=== PATIENT | female | born 1965 | race Hispanic/Latino ===

== ENCOUNTER 2024-08-21 14:34 | Emergency (ER) | payer SELFPAY ==
[~2024-08-21] VITALS: Ht 154.9 cm; Wt 103.9 kg
[2024-08-21 14:45] VITALS: BP 126/58; PULSE 72; RESP 16; TEMP 98.9
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
--- NOTE | 2024-08-21 15:04 | EKG ---
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
--- NOTE | 2024-08-21 15:07 | NUR ---
REFER TO TRAUMA FLOW SHEET
--- NOTE | 2024-08-21 15:47 | HMCIMG ---
Exam Type: CHEST 1VW Clinical Information: cp Comparison: None Findings: The lungs are clear of infiltrates. The heart is enlarged. Bony and soft tissue structures of the chest wall are unremarkable. IMPRESSION: Cardiomegaly. Clear lungs.
== END 2024-08-21 16:20 | disposition home or self-care (01) ==
LOC: EDH 14:34
DX: R07.89 Other chest pain (principal); V89.2XXA Person injured in unspecified motor-vehicle accident, traffic, initial encounter; Y93.I9 Activity, other involving external motion; Y92.89 Other specified places as the place of occurrence of the external cause; Y99.8 Other external cause status
CPT/HCPCS: 71045; 93005; 99283